=== PATIENT | male | born 1950 | race Caucasian/White ===

== ENCOUNTER 2020-09-08 17:25 | Emergency (ER) | payer OTHER ==
[2020-09-08 18:39] LABS: BASOPHIL 0.7 % (0-2); EOSINOPHIL 1.6 % (0-7); HCT 38.5 % (42.0-52.0); HGB 12.4 g/dl (13.2-18.0); LYMPHOCYTE 10.7 % (15-48); MCH 29.2 pg (25.0-31.0); MCHC 32.2 g/dL (32.0-36.0); MCV 90.8 fL (78.0-100.0); MONOCYTE 6.6 % (0-12); MPV 10.2 fL (6.0-9.5); NEUTROPHIL 76.8 % (41-80); NRBC 0; PLT 237 K/uL (150-400); RBC 4.24 M/uL (4.70-6.00); RDW 13.5 % (11.5-14.0); WBC 12.2 K/uL (4.0-10.5)
[2020-09-08 18:58] LABS: ALBUMIN 3.9 g/dL (3.4-5.0); BILIRUBIN - TOTAL 0.3 mg/dL (0.2-1.0); BUN/CREAT RATIO (CALC) 21.2 RATIO; CREATININE 0.8 mg/dL (0.67-1.17); GLOBULIN (CALCULATION) 3.7 g/dL; POTASSIUM 4.2 mmol/L (3.5-5.1); TOTAL PROTEIN 7.6 g/dL (6.4-8.2)
[2020-09-08] MEDS ORDERED: CYCLOBENZAPRINE10 MG PO (21:43)
[2020-09-08] MEDS ORDERED: PERCOCET 5-3251 EACH PO (21:43)
[2020-09-08] MEDS ORDERED: IBUPROFEN800 MG PO (21:43)
[2020-09-08] MEDS ORDERED: MEDROL 4MG DOSEP4 MG PO (21:43)
== END 2020-09-08 22:05 | disposition home or self-care (01) ==
LOC: FER 17:25
PROVIDERS: Emergency Medicine
DX: S16.1XXA Strain of muscle, fascia and tendon at neck level, initial encounter (principal); S00.83XA Contusion of other part of head, initial encounter; S40.212A Abrasion of left shoulder, initial encounter; F17.200 Nicotine dependence, unspecified, uncomplicated; I10 Essential (primary) hypertension; V49.40XA Driver injured in collision with unspecified motor vehicles in traffic accident, initial encounter; W22.11XA Striking against or struck by driver side automobile airbag, initial encounter; Y92.410 Unspecified street and highway as the place of occurrence of the external cause; Z23 Encounter for immunization
CPT/HCPCS: 36415; 70450; 70486; 71260; 72125; 80053; 83690; 85025; 90471; 90715; 93005; J2270; J2405; J7030; Q9967